=== PATIENT | male | born 1960 | race Hispanic/Latino ===

== ENCOUNTER 2021-05-27 14:17 | Emergency (ER) | payer OTHER ==
[~2021-05-27] VITALS: Ht 167.6 cm; Wt 81.6 kg
[2021-05-27 14:18] VITALS: BP 142/82
[2021-05-27 15:00] LABS: APPEARANCE,URINE Clear (CLEAR); BILIRUBIN,URINE Negative (NEGATIVE); COLOR,URINE Yellow (YELLOW); GLUCOSE, URINE (UA) Negative (NEGATIVE); KETONES,URINE Negative (NEGATIVE); LEUKOCYTE ESTERASE ,URINE Negative (NEGATIVE); NITRATE,URINE Negative (NEGATIVE); OCCULT BLOOD,URINE Negative (NEGATIVE); PH,URINE 6.5 (5.0-8.0); PROTEIN,URINE Trace mg/dL (NEGATIVE)
[2021-05-27 15:02] LABS: BASOPHILS % (AUTO) 0.7 % (0.0-5.0); EOSINOPHILS % (AUTO) 2.3 % (0.0-8.0); HEMATOCRIT 38.1 % (42-54); LYMPHOCYTES % (AUTO) 11.7 % (21.0-51.0); MEAN CORPUSCULAR HEMOGLOBIN 26.2 pg (27.0-33.0); MEAN CORPUSCULAR HGB CONC 32.8 g/dL (32.0-36.0); MEAN CORPUSCULAR VOLUME 79.9 fL (79-99); MONOCYTES % (AUTO) 5.4 % (3.0-13.0); NEUTROPHILS % (AUTO) 79.3 % (40.0-77.0); PLATELET COUNT (AUTO) 261 K/uL (130-400); RED BLOOD CELL COUNT(AUTO) 4.77 MIL/uL (4.50-6.20); WHITE BLOOD COUNT (AUTO) 10.4 K/uL (4.8-10.8)
[2021-05-27 15:11] LABS: BACTERIA,URINE None Seen /HPF (None Seen); MUCUS,URINE Few LPF (None Seen); RBC,URINE 0-1 /HPF (0-1); SPERM,URINE Rare /HPF (None Seen); SQUAMOUS EPITHELIAL CELL,UR Rare /HPF (0-2); WBC,URINE 0-1 /HPF (0-1)
[2021-05-27 15:26] LABS: POTASSIUM 4.4 mmol/L (3.5-5.1)
[2021-05-27] MEDS: KETOROLAC 60 MG VIAL (30MG/ML) ONE (15:26)
[2021-05-27] MEDS: HYDROCODONE/ACETAMINOPHEN 10/325 MG TAB ONE (15:26)
[2021-05-27] MEDS: CYCLOBENZAPRINE HCL 10 MG TABLET ONE (15:26)
[2021-05-27 15:30] LABS: ALBUMIN 3.6 g/dL (3.5-5.0); BILIRUBIN,TOTAL 0.3 mg/dL (0.2-1.0); CRP QUANTITATIVE 87.5 mg/L (0.00-9.0); TOTAL PROTEIN, SERUM 7.9 g/dL (6.0-8.3)
[2021-05-27] MEDS ORDERED: CYCL10TA16 PO (15:40)
[2021-05-27] MEDS ORDERED: GABA300C PO (15:40)
[2021-05-27] MEDS: FENTANYL 50 MCG/HR PATCH TD ONE (15:42)
[2021-05-27] MEDS: HYDROCODONE/ACETAMINOPHEN 10/325 MG TAB PO ONE (15:43)
[2021-05-27] MEDS: KETOROLAC 60 MG VIAL (30MG/ML) IM ONE (15:43)
[2021-05-27] MEDS: CYCLOBENZAPRINE HCL 10 MG TABLET PO ONE (15:43)
[2021-05-27] MEDS ORDERED: FENTANYL 50 MCG/HR PATCH TD SCH (16:00)
== END 2021-05-27 15:57 | disposition home or self-care (01) ==
LOC: EDH 14:17
DX: G89.18 Other acute postprocedural pain (principal); M54.50 Low back pain, unspecified; E11.65 Type 2 diabetes mellitus with hyperglycemia
CPT/HCPCS: 36415; 72131; 80053; 81001; 83605; 85025; 86140; 96372; 99284; J1885

== ENCOUNTER 2021-12-04 11:01 | Emergency (ER) | payer OTHER ==
[~2021-12-04] VITALS: Ht 172.7 cm; Wt 89.4 kg
[~2021-12-04 11:01] MED LIST: CYCL10TA16 PO; GABA300C PO
[2021-12-04 11:06] VITALS: BP 145/90
[2021-12-04] MEDS ORDERED: NAPR500T6 PO (13:17)
[2021-12-04] MEDS ORDERED: CYCL10TA16 PO (13:17)
[2021-12-04] MEDS ORDERED: KETOROLAC 30MG VIAL (30MG/ML) IM SCH (13:30)
[2021-12-04] MEDS ORDERED: DIAZEPAM 5 MG TABLET PO SCH (13:30)
== END 2021-12-04 13:46 | disposition home or self-care (01) ==
LOC: EDH 11:01
DX: M54.42 Lumbago with sciatica, left side (principal); E11.9 Type 2 diabetes mellitus without complications; Z90.49 Acquired absence of other specified parts of digestive tract; Z98.890 Other specified postprocedural states; Z88.8 Allergy status to other drugs, medicaments and biological substances
CPT/HCPCS: 96372; 99283; J1885

== ENCOUNTER → 2022-04-05 | Outpatient (CLI) | payer OTHER ==
[~2022-04-05] MED LIST changes: +NAPR500T6 PO
== END | disposition home or self-care (01) ==
LOC: RAH 12:30
PROVIDERS: ATTEND Physical Medicine & Rehabilitation
DX: M79.605 Pain in left leg (principal)
CPT/HCPCS: 93926; 93971

== ENCOUNTER → 2022-04-09 | Outpatient (CLI) | payer OTHER | END | disposition home or self-care (01) | LOC: RAH 10:18 | PROVIDERS: ATTEND Physical Medicine & Rehabilitation | DX: M16.12 Unilateral primary osteoarthritis, left hip (principal); M25.852 Other specified joint disorders, left hip | CPT/HCPCS: 73700 ==

== ENCOUNTER → 2022-09-18 | Outpatient (CLI) | payer OTHER | END | disposition home or self-care (01) | LOC: RAH 10:36 | PROVIDERS: ATTEND Orthopaedic Surgery | DX: I70.202 Unspecified atherosclerosis of native arteries of extremities, left leg (principal); M17.12 Unilateral primary osteoarthritis, left knee | CPT/HCPCS: 93926 ==

== ENCOUNTER → 2023-01-14 | Outpatient (CLI) | payer OTHER ==
[~2023-01-14] MED LIST changes: -CYCL10TA16 PO; -GABA300C PO; -NAPR500T6 PO; +SITA1TAB2 PO
== END | disposition home or self-care (01) ==
LOC: RAH 13:36
PROVIDERS: ATTEND Orthopaedic Surgery
DX: M17.12 Unilateral primary osteoarthritis, left knee (principal)
CPT/HCPCS: 73700

== ENCOUNTER 2023-01-16 06:53 | Observation (INO) | payer OTHER ==
[2023-01-09 12:05] LABS: BASOPHILS % (AUTO) 0.9 % (0.0-5.0); EOSINOPHILS % (AUTO) 2.6 % (0.0-8.0); HEMATOCRIT 45.2 % (42-54); LYMPHOCYTES % (AUTO) 24.3 % (21.0-51.0); MEAN CORPUSCULAR HEMOGLOBIN 25.5 pg (27.0-33.0); MEAN CORPUSCULAR HGB CONC 31.2 g/dL (32.0-36.0); MEAN CORPUSCULAR VOLUME 81.6 fL (79-99); MONOCYTES % (AUTO) 6.5 % (3.0-13.0); NEUTROPHILS % (AUTO) 65.4 % (40.0-77.0); PLATELET COUNT (AUTO) 169 K/uL (130-400); RED BLOOD CELL COUNT(AUTO) 5.54 MIL/uL (4.50-6.20); RED CELL DISTRIBUTION WIDTH 14.7 % (11.0-15.5); WHITE BLOOD COUNT (AUTO) 6.5 K/uL (4.8-10.8)
[2023-01-09 12:13] LABS: POTASSIUM 4.4 mmol/L (3.5-5.1)
[2023-01-09 12:24] LABS: INR 0.93 (0.85-1.15); PROTHROMBIN TIME 10.1 SEC (9.6-11.6)
[2023-01-09 12:25] LABS: PARTIAL THROMBOPLASTIN TIME 31.1 SEC (26.3-35.5)
[2023-01-09 12:51] VITALS: BP 149/86
[~2023-01-16] VITALS: Ht 177.8 cm; Wt 85.6 kg
[2023-01-16] VITALS (30 sets, daily range): BP systolic 123–165; BP diastolic 63–89
[2023-01-16] MEDS ORDERED: 0.9%NACL 1000ML 1,000 ML IV ONE (07:11)
[2023-01-16] MEDS ORDERED: CEFAZOLIN SODIUM 2 GM VIAL ONE (07:11)
[2023-01-16] MEDS ORDERED: LIDOCAINE PF 100MG/5ML (2%) SYRINGE 5ML ONE (10:36)
[2023-01-16] MEDS ORDERED: ONDANSETRON 4MG INJ ONE (10:37)
[2023-01-16] MEDS ORDERED: DEXAMETHASONE SOD PHOSPHATE 10MG/ML 1ML VIAL ONE (10:37)
[2023-01-16] MEDS ORDERED: ROCURONIUM 10MG/1ML SYR 10 MG/ML ML ONE (10:37)
[2023-01-16] MEDS ORDERED: PROPOFOL 10 MG/ML 20ML VIAL IV ONE (10:37)
[2023-01-16] MEDS ORDERED: MIDAZOLAM HCL 1 MG/ML 2ML VIAL ONE (10:37)
[2023-01-16] MEDS ORDERED: TRANEXAMIC ACID 1000MG/10ML ONE (10:39)
[2023-01-16] MEDS ORDERED: FENTANYL CITRATE PF 50 MCG/1 ML 2ML VIAL ONE ×3 (10:39→14:29)
[2023-01-16] MEDS ORDERED: ROPIVACAINE 0.5% 5MG/ML 30ML IJ ONE (11:51)
[2023-01-16] MEDS ORDERED: EPHEDRINE SULFATE 50 MG/ML AMPULE ONE (12:43)
[2023-01-16] MEDS ORDERED: NEOSTIGMINE 5MG/5ML SYR IV ONE (13:28)
[2023-01-16] MEDS ORDERED: GLYCOPYRROLATE 1 MG/5 ML SYRINGE ONE (13:28)
[2023-01-16] MEDS ORDERED: ONDANSETRON 4MG INJ IVP PRN (14:30)
[2023-01-16] MEDS ORDERED: KCL 20 MEQ ERTAB PO PRN (14:30)
[2023-01-16] MEDS ORDERED: POTASSIUM CHLORIDE 20MEQ/100ML 100 ML IV PRN (14:30)
[2023-01-16] MEDS ORDERED: HYDROCODONE/ACETAMINOPHEN 5/325 MG TAB PO PRN (14:30)
[2023-01-16] MEDS ORDERED: POTASSIUM CHLORIDE 10% ELIXIR 20 MEQ/15 ML UDCUP PO PRN (14:30)
[2023-01-16] MEDS ORDERED: HYDROCODONE/ACETAMINOPHEN 10/325 MG TAB PO PRN (14:30)
[2023-01-16] MEDS ORDERED: ACETAMINOPHEN 1,000 MG/100 ML VIAL IV ONE (14:30)
[2023-01-16] MEDS: ACETAMINOPHEN 1,000 MG/100 ML VIAL IV SCH ×2 (14:34→20:31)
[2023-01-16] MEDS: INSULIN HUMULIN R 100 UNIT/ML 3ML SQ SCH ×2 (16:30→20:35)
[2023-01-16] MEDS: METFORMIN HCL PO SCH (17:00)
[2023-01-16] MEDS: SITAGLIPTIN PHOS PO SCH (17:00)
[2023-01-16] MEDS: IBUPROFEN 800MG + NS 250ML IV SCH (17:45)
[2023-01-16] MEDS: 0.9%NACL 1000ML 1,000 ML IV SCH ×2 (17:46→23:51)
[2023-01-16] MEDS: TRAMADOL HCL 50 MG TABLET PO SCH ×2 (18:45→23:51)
[2023-01-16] MEDS: CEFAZOLIN SODIUM 1 GM VIAL IVPB SCH (20:07)
[2023-01-16] MEDS: ASPIRIN 81 MG EC TAB PO SCH (20:08)
[2023-01-16] MEDS: FAMOTIDINE 20MG TAB PO SCH (20:08)
[2023-01-16] MEDS: MORPHINE 4 MG SYG IVP PRN (20:40)
[2023-01-17] MEDS: IBUPROFEN 800MG + NS 250ML IV SCH ×2 (01:02→09:50)
[2023-01-17 02:45] VITALS: BP 134/69
[2023-01-17] MEDS: ACETAMINOPHEN 1,000 MG/100 ML VIAL IV SCH (02:59)
[2023-01-17] MEDS ORDERED: GUAIFENESIN-CODEINE 5 ML SYRUP PO PRN (03:00)
[2023-01-17] MEDS: CEFAZOLIN SODIUM 1 GM VIAL IVPB SCH (04:01)
[2023-01-17 05:10] LABS: CREATININE 1.1 mg/dL (0.5-1.5); HEMATOCRIT 33.7 % (42-54); MEAN CORPUSCULAR HEMOGLOBIN 25.9 pg (27.0-33.0); MEAN CORPUSCULAR HGB CONC 32.6 g/dL (32.0-36.0); MEAN CORPUSCULAR VOLUME 79.5 fL (79-99); POTASSIUM 3.9 mmol/L (3.5-5.1); RED BLOOD CELL COUNT(AUTO) 4.24 MIL/uL (4.50-6.20); RED CELL DISTRIBUTION WIDTH 14.6 % (11.0-15.5); WHITE BLOOD COUNT (AUTO) 10.4 K/uL (4.8-10.8)
[2023-01-17] MEDS: TRAMADOL HCL 50 MG TABLET PO SCH ×4 (05:35→23:48)
[2023-01-17] MEDS: INSULIN HUMULIN R 100 UNIT/ML 3ML SQ SCH ×5 (06:31→19:39)
[2023-01-17 06:45] VITALS: BP 126/74
[2023-01-17] MEDS: SITAGLIPTIN PHOS PO SCH ×2 (08:00→17:00)
[2023-01-17] MEDS: METFORMIN HCL PO SCH ×2 (08:00→17:00)
[2023-01-17] MEDS: FAMOTIDINE 20MG TAB PO SCH ×2 (09:51→19:40)
[2023-01-17] MEDS: ASPIRIN 81 MG EC TAB PO SCH ×2 (09:51→19:40)
[2023-01-17] MEDS: POLYETHYLENE GLYCOL 3350 17 GM POWD.PACK PO SCH (09:51)
[2023-01-17] MEDS: 0.9%NACL 1000ML 1,000 ML IV SCH (11:37)
[2023-01-17 12:00] VITALS: BP 137/67
[2023-01-17 15:49] VITALS: BP 150/83
[2023-01-17 19:24] VITALS: BP 164/87
[2023-01-17 23:09] VITALS: BP 152/88
[2023-01-18] MEDS: MORPHINE 4 MG SYG IVP PRN (00:41)
[2023-01-18 03:40] VITALS: BP 104/91
[2023-01-18] MEDS: TRAMADOL HCL 50 MG TABLET PO SCH ×2 (06:24→13:19)
[2023-01-18] MEDS: INSULIN HUMULIN R 100 UNIT/ML 3ML SQ SCH ×2 (06:50→11:30)
[2023-01-18 08:00] VITALS: BP 153/94
[2023-01-18] MEDS: SITAGLIPTIN PHOS PO SCH (08:00)
[2023-01-18] MEDS: METFORMIN HCL PO SCH (08:00)
[2023-01-18] MEDS: FAMOTIDINE 20MG TAB PO SCH (08:03)
[2023-01-18] MEDS: ASPIRIN 81 MG EC TAB PO SCH (08:03)
[2023-01-18] MEDS: POLYETHYLENE GLYCOL 3350 17 GM POWD.PACK PO SCH (08:03)
[2023-01-18 12:00] VITALS: BP 151/93
[2023-01-18 16:00] VITALS: BP 147/96
[2023-01-19] MEDS ORDERED: BISACODYL 10 MG SUPP.RECT RC PRN (14:30)
== END 2023-01-18 17:25 | disposition home or self-care (01) ==
LOC: DAH 06:53 → DAHIP 06:54 → DAH 06:54 → 4CH 16:40
PROVIDERS: ADMIT Orthopaedic Surgery; ATTEND Orthopaedic Surgery
DX: M17.12 Unilateral primary osteoarthritis, left knee (principal); Z20.822 Contact with and (suspected) exposure to COVID-19; E11.9 Type 2 diabetes mellitus without complications; Z79.899 Other long term (current) drug therapy; Z98.890 Other specified postprocedural states
CPT/HCPCS: 80048 ×2; 85025; 85610; 85730; 87426; 36415 ×2; 87641; 27447; 96372; 96365; 96366 ×2; 96375 ×2; 96367 ×2; 96368; 64447; 82948 ×10; 85027; 97161; 97039 ×4; 97116 ×4; 97530 ×3; 96376; A6260; C1776 ×4; G0378 ×46; A4663; J7030 ×2; J3010 ×3; J0690 ×3; J3490 ×3; J1100; J2710; J2001; J2250; J2704; J2405 ×2; J2270 ×2; J2795; J1741 ×3; J1815; A6223; A4649 ×6; G0168; A6212; A5120 ×2; A4215; A4223; A4222; A4221; A6450